=== PATIENT | male | born 1995 | race Hispanic/Latino ===

== ENCOUNTER 2020-12-19 16:36 | Emergency (ER) | payer SELFPAY ==
[2020-12-19] MEDS ORDERED: PHENAZOPYRIDINE HCL 200 MG TABLET PO ONE (16:37)
[2020-12-19] MEDS ORDERED: 0.9%NACL 1000ML 1,000 ML IV ONE (16:37)
[2020-12-19] MEDS ORDERED: CEFTRIAXONE 1G VIAL IVP ONE (16:37)
[2020-12-19 17:16] LABS: BASOPHILS % (AUTO) 0.4 % (0.0-5.0); MEAN CORPUSCULAR HEMOGLOBIN 27.7 pg (27.0-33.0); MEAN CORPUSCULAR HGB CONC 33.3 g/dL (32.0-36.0); MEAN CORPUSCULAR VOLUME 83.2 fL (79-99); MONOCYTES % (AUTO) 9.4 % (3.0-13.0); NEUTROPHILS % (AUTO) 62.8 % (40.0-77.0); PLATELET COUNT (AUTO) 232 K/uL (130-400); RED BLOOD CELL COUNT(AUTO) 6.25 MIL/uL (4.50-6.20); RED CELL DISTRIBUTION WIDTH 12.1 % (11.0-15.5); WHITE BLOOD COUNT (AUTO) 7.7 K/uL (4.8-10.8)
[2020-12-19 17:30] LABS: BILIRUBIN,TOTAL 0.6 mg/dL (0.2-1.0); CREATININE 1.1 mg/dL (0.5-1.5); POTASSIUM 3.7 mmol/L (3.5-5.1)
[2020-12-19] MEDS ORDERED: INSULIN HUMULIN R 100 UNIT/ML 3ML ONE (17:41)
[2020-12-19 17:44] LABS: APPEARANCE,URINE CLOUDY (CLEAR); BILIRUBIN,URINE NEGATIVE (NEGATIVE); COLOR,URINE YELLOW (YELLOW); GLUCOSE, URINE (UA) >=1000 mg/dL (NEGATIVE); KETONES,URINE 15 mg/dL (NEGATIVE); LEUKOCYTE ESTERASE ,URINE SMALL (NEGATIVE); NITRATE,URINE NEGATIVE (NEGATIVE); OCCULT BLOOD,URINE MODERATE (NEGATIVE); PH,URINE 5.5 (5.0-8.0); PROTEIN,URINE TRACE mg/dL (NEGATIVE); UROBILINOGEN,URINE 0.2 mg/dL (0.2-1.0)
[2020-12-19 17:50] LABS: BACTERIA,URINE Rare /HPF (None Seen)
[2020-12-19 17:51] LABS: SQUAMOUS EPITHELIAL CELL,UR Rare /HPF (0-2)
== END 2020-12-19 18:28 | disposition home or self-care (01) ==
LOC: EDH 16:36
DX: E13.65 Other specified diabetes mellitus with hyperglycemia (principal); E13.40 Other specified diabetes mellitus with diabetic neuropathy, unspecified; N39.0 Urinary tract infection, site not specified; I10 Essential (primary) hypertension
CPT/HCPCS: 36415; 80053; 81001; 82948; 83690; 83930; 85025; 87088; 96365; 96375; 99285; J0696; J1815; J7030

== ENCOUNTER 2024-05-19 11:36 | Emergency (ER) | payer BC ==
[~2024-05-19] VITALS: Ht 175.3 cm; Wt 107.0 kg
[2024-05-19] MEDS: DEXAMETHASONE SOD PHOSPHATE 4 MG/ML 1ML VIAL IM ONE (12:36)
[2024-05-19] MEDS: acetaMINOPHEN 500 MG TABLET PO ONE (12:37)
[2024-05-19] MEDS: KETOROLAC 60 MG VIAL (30MG/ML) IM ONE (12:37)
[2024-05-19 13:07] VITALS: TEMP 98.6
[2024-05-19 13:15] LABS: RAPID GROUP A STREP negative (NEGATIVE)
[2024-05-19 13:25] LABS: INFLUENZA TYPE A Negative For Type A (NEGATIVE); INFLUENZA TYPE B Negative For Type B (NEGATIVE)
[2024-05-19] MEDS ORDERED: IBUP-2077 PO (15:26)
[2024-05-19] MEDS ORDERED: METH4TAB3 PO (15:26)
[2024-05-19 15:34] VITALS: BP 139/81; PULSE 88; RESP 16; O2SAT 98
== END 2024-05-19 15:36 | disposition home or self-care (01) ==
LOC: EDH 11:36
DX: R51.9 Headache, unspecified (principal); E11.9 Type 2 diabetes mellitus without complications; I10 Essential (primary) hypertension; Z20.822 Contact with and (suspected) exposure to COVID-19
CPT/HCPCS: 99284; 87880; 87804 ×2; 96372 ×2; J1100; J1885